=== PATIENT | male | born 1985 | race Caucasian/White ===

== ENCOUNTER 2017-06-12 01:48 | Emergency (ER) | payer MEDICAID, OTHER ==
[~2017-06-12] VITALS: Ht 182.9 cm; Wt 83.9 kg
[~2017-06-12 01:48] MED LIST: IBUPROFEN600 MG ORAL
[2017-06-12 01:51] VITALS: BP 150/100
[2017-06-12] MEDS ORDERED: VIBRAMYCIN100 MG ORAL (01:55)
[2017-06-12] MEDS ORDERED: ZOLOFT50 MG ORAL (01:55)
[2017-06-12] MEDS ORDERED: BUPROPION XL300 MG ORAL (01:55)
[2017-06-12 03:13] VITALS: BP 150/100
--- NOTE | 2017-06-12 05:29 | Emergency Room Report ---
History of Present Illness General Chief Complaint: General Complaint Source: Patient Present Illness HPI Patient is a 32-year-old male presented after increased palpitations. Patient reports having recently had his medications adjusted. Patient states that he had recently had his Zoloft dose increased . The patient had been previously taking Wellbutrin. The patient denies any fever. He reported having increased agitation. He denied any suicidal thoughts. He denied any stimulant use. Allergies: Coded Allergies: No Known Allergies (Unverified , 09/19/15) Patient History Past Medical History: see triage record Reviewed Nursing Documentation: PMH: Agreed, PSxH: Agreed Nursing Documentation-PMH History Of Psychiatric Problem: Yes - depression, anxiety Review of Systems All Other Systems: negative except mentioned in HPI Physical Exam Vital Signs Date Time Temp Pulse Resp B/P (MAP) Pulse Ox O2 Delivery O2 Flow Rate FiO2 06/12/17 01:51 97.7 81 14 150/100 96 Room Air 97.7 General Appearance: well appearing, no apparent distress, alert, GCS 15 Head: normocephalic, atraumatic ENT: hearing grossly normal, normal voice Neck: full range of motion, supple Respiratory: no respiratory distress, speaking full sentences Cardiovascular #1: normal inspection Gastrointestinal: normal inspection, non tender, soft Musculoskeletal: normal inspection, no calf tenderness Neurologic: normal inspection, alert, oriented x3, responsive, assistance specialist III-XII nml as tested, normal gait Psychiatric: mood/affect normal Skin: no rash Medical Decision Making Diagnostic Impression: Primary Impression: Heart palpitations ER Course .Patient presented for palpitations. The differential diagnosis included was not limited to arrhythmia, thyroid storm, sepsis, anemia, myocardial infarction , alcohol withdrawal, stimulant abuse, caffeine overdose among others. Patient has a benign exam and does not appear to require any further imaging or laboratory testing at this time. EKG interpreted by me showed normal sinus rhythm with rate of [address] or T wave changes. The patient was advised to adjust the dosage of Zoloft and Wellbutrin. The patient's symptoms appear to be related to increased Wellbutrin due to medications.The patient is advised to follow up with primary care doctor in 1-2 days. Patient is advised to return if any worsening condition or if any changes in status that are concerning. This report is dictated with [employer] clinical interviewer software which may occasionally lead to discrepancies related to use of this software. EKG Diagnostic Results Rate: normal Rhythm: NSR ST Segments: no acute changes Last Vital Signs Date Time Temp Pulse Resp B/P (MAP) Pulse Ox O2 Delivery O2 Flow Rate FiO2 06/12/17 03:13 97.7 14 150/100 96 Room Air 97.7 06/12/17 01:51 81 Status: improved Disposition: HOME, SELF-CARE Condition: Stable Referrals: [facility]ERR[facility] (PCP) Patient Instructions: Palpitations Additional Instructions: Take lower dose of Wellbutrin until feeling better. Take Zoloft 25 mg only unless you continue to feel abnormal. Tyler Marti Jun 12, 2017 05:29
== END 2017-06-12 03:13 | disposition home or self-care (01) ==
LOC: EMR 02:06
DX: R00.2 Palpitations (principal); F41.9 Anxiety disorder, unspecified; F32.9 Major depressive disorder, single episode, unspecified
CPT/HCPCS: 99283

== ENCOUNTER 2018-07-16 16:15 | Emergency (ER) | payer MEDICAID ==
[~2018-07-16] VITALS: Ht 182.9 cm; Wt 76.2 kg
[~2018-07-16 16:15] MED LIST changes: +BUPROPION XL300 MG ORAL; +VIBRAMYCIN100 MG ORAL; +ZOLOFT50 MG ORAL
[2018-07-16 16:30] VITALS: BP 119/85
[2018-07-16] MEDS ORDERED: VYVANSE10 MG PO (16:31)
--- NOTE | 2018-07-16 16:32 | NUR ---
ED Nurse Note: AMBULATED IN TO ER DUE TO BACK PAIN 10/06 AFTER WEIGHT LIFTING 1240 AT [facility]. TOOK TYLENOL AT 1300 AND PAIN WENT DOWN LITTLE BIT.
[2018-07-16] MEDS: Ketorolac 60mg Inj IM ONE (16:58)
[2018-07-16] MEDS ORDERED: LIDODERM700 M1 TOPIC (17:02)
[2018-07-16] MEDS ORDERED: ROBAXIN-750750 MG PO (17:02)
[2018-07-16] MEDS ORDERED: NAPROXEN500 M1 ORAL (17:02)
--- NOTE | 2018-07-16 17:03 | Emergency Room Report ---
History of Present Illness General Chief Complaint: Back Injury Source: Patient Present Illness HPI 33-year-old male presents with low back pain that radiates on the left leg that began earlier today. States that he was lifting weights when he felt a sharp pain in his lower back which then radiated to his left heel. States that he never had this pain before. Patient has not taken medication for symptoms but states that his pain is improved by laying supine. States that his pain is worse with ambulating and movement. Patient denies any saddle anesthesia, incontinence, lower extremity weakness, or foot drop. Allergies: Coded Allergies: No Known Allergies (Unverified , 09/19/15) Patient History Past Medical History: see triage record Past Surgical History: none Pertinent Family History: none Reviewed Nursing Documentation: PMH: Agreed; PSxH: Agreed Nursing Documentation-PM Past Medical History: No History, Except For Review of Systems All Other Systems: negative except mentioned in HPI Physical Exam Vital Signs Date Time Temp Pulse Resp B/P (MAP) Pulse Ox O2 Delivery O2 Flow Rate FiO2 07/16/18 16:27 99.0 91 16 119/85 99 Room Air Sp02 EP Interpretation: reviewed, normal General Appearance: no apparent distress, alert, GCS 15, non-toxic Head: normocephalic, atraumatic Eyes: bilateral eye normal inspection, bilateral eye PERRL ENT: hearing grossly normal, normal pharynx, no angioedema, normal voice Neck: full range of motion, supple/symm/no masses Respiratory: no respiratory distress Cardiovascular #1: normal peripheral pulses Musculoskeletal: back normal, normal range of motion, non-tender, other - Antalgic gait, no gross bony abnormalities or midline tenderness of the spine Neurologic: alert, oriented x3, responsive, motor strength/tone normal, sensory intact, speech normal, other - 5 out of 5 strength equal bilaterally in lower extremities. Positive straight leg raise. Normal sensation. Psychiatric: judgement/insight normal, memory normal, mood/affect normal, no suicidal/homicidal ideation Skin: normal color, no rash, warm/dry, well hydrated Medical Decision Making PA Attestation Dr. Hendricks is my supervising physician with whom patient management has been discussed with. Diagnostic Impression: Primary Impression: Lumbago with sciatica, left side Qualified Codes: M54.42 - Lumbago with sciatica, left side ER Course Pt. presents to the ED c/o low back pain Ddx considered but are not limited to fracture, contusion, cauda aquina syndrome , UTI, Kidney stone sprain, strain, spinal fracture Vital signs: are stable pt. is afebrile H&PE are most consistent with lumbago with left sciatica along L4 nerve root ORDERS: none required at this time, the diagnosis is clinical. Patient has no incontinence, saddle anesthesia, or foot drop. Patient has no significant mechanism of injury. ED INTERVENTIONS: Toradol 30mg DISCHARGE: At this time pt. is stable for d/c to home. Will provide printed patient care instructions, and any necessary prescriptions. Care plan and follow up instructions have been discussed with the patient prior to discharge. Last Vital Signs Date Time Temp Pulse Resp B/P (MAP) Pulse Ox O2 Delivery O2 Flow Rate FiO2 07/16/18 16:30 99.0 82 16 119/85 99 Room Air Disposition: HOME, SELF-CARE Condition: Stable Scripts Lidocaine (Lidoderm) 1 Each Adh..patch 1 PATCH TOPIC Q12HR, #7 PATCH 0 Refills Patch(es) may remain in place for up to 12 hours in any 24-hour period. Prov: Ruperto Sanderson 07/16/18 Methocarbamol* (ROBAXIN-750*) 750 Mg Tablet 750 MG PO TID, #30 TAB 0 Refills Prov: Ruperto Sanderson 07/16/18 Naproxen* (NAPROXEN*) 500 Mg Tablet.dr 500 MG ORAL TWICE A DAY for 10 Days, #20 TAB Prov: Ruperto Sanderson 07/16/18 Patient Instructions: Sciatica With Rehab-SportsMed Additional Instructions: Advised patient to take medication as needed. Advised patient that muscle relaxers causes drowsiness and to not take it if they plan on leaving the house or operating heavy machinery. Patient education on Li method back exercises for radiculopathy and given hand out with stretches detailed. Advised patient to sleep with pillow behind leg if laying supine or between the knees if laying on their side. Advised patient to wear proper footwear with good insoles in addition to good ergonomics while at home and at work. Patient encouraged for weight loss through diet and exercise to help prevent recurrence of future back pain. Advised patient to go to the ER immediately if she experiences any new LE numbness, weakness, irretractible back pain, or if any paralysis, urinary, or bowel incontinence begins. Ruperto Sanderson Jul 16, 2018 17:03
[2018-07-16 17:13] VITALS: BP 119/85
--- NOTE | 2018-07-16 17:13 | NUR ---
ED Nurse Note: Pt cleared by health care Provider for discharge. DC instructions/prescription was given and explained to pt and verbalized understanding of teachings. All medical deviecs such as ID band removed. Pt is AAO x4, ambulatory and left with all personal belongings. Pt states that he is not driving home and is going home by taxi.
== END 2018-07-16 17:15 | disposition home or self-care (01) ==
LOC: EMR 16:46
DX: M54.42 Lumbago with sciatica, left side (principal)
CPT/HCPCS: 96372; 99283